=== PATIENT | male | born 1990 | race Caucasian/White ===

== ENCOUNTER 2024-03-25 21:52 | Emergency (ER) | payer OTHER, SELFPAY ==
[2024-03-25 21:54] VITALS: BP 129/92
[2024-03-25] MEDS: ADACEL 0.5 ML IM (22:59)
--- NOTE | 2024-03-25 23:02 | ED.GENMED ---
History of Present Illness
General
Chief Complaint: Skin Surface Trauma
Source: patient and spouse
Exam Limitations: none
Time Seen by Provider: 03/25/24 22:08
Nursing documentation reviewed up to this point in time: agreed with
Travel History
Have you had any contact with someone who has COVID-19?: No
Do you have any symptoms of coronavirus? Fever > 100 degrees, chills, cough, shortness of breath, sore throat, loss of taste or smell, muscle aches, or headache?: No
History of Present Illness
History of Present Illness:
34-year-old male without significant past medical history presenting to the emergency department today with concerns of a laceration and skin avulsion to the left ring finger that occurred on a bread knife prior to arrival. Denies additional
numbness weakness or additional concerns.
Review of Systems
Review of Systems
Allergies reviewed?: Yes
All Other Systems: ROS reviewed and negative except as documented in HPI and ROS
Phy Exam
Physical Exam
Physical Exam:
GENERAL: Alert , in no apparent distress
EYE: pupils equal and reactive
NECK: Supple, no significant adenopathy.
ENT: o/p clr, mmm.
CARDIAC: Regular rate and rhythm .
LUNGS: Clear breath sounds bilaterally, no acute respiratory distress, no wheezes/rales/rhonchi
ABDOMEN: Soft, without focal tenderness, no r/g, no cvat
NEUROLOGICAL: Alert and oriented, no focal neuro deficits
SKIN: Skin avulsion to the left ring finger on the ulnar aspect the very distal finger on the lateral aspect roughly 1 cm in total length and diameter. Deep to subcutaneous tissue. No foreign body seen. Only very small amount of the flap was
still connected and nonviable warm and dry, skin intact.
MUSCULOSKELETAL: No edema, well perfused.
PSYCH: Normal and appropriate interaction.
Course
Orders/Labs/Results
Orders:
Orders
03/25/24 22:56
Tetanus/Diphth/Acelpertussis [Adacel] 0.5 ml IM .ONCE ONE
Vital Signs
Initial and Last Documented VS:
Initial Vital Signs
Temp Pulse Resp BP Pulse Ox
98.4 F 76 18 129/92 99
03/25/24 21:54 03/25/24 21:54 03/25/24 21:54 03/25/24 21:54 03/25/24 21:54
Last Documented Vital Signs
Temp Pulse Resp BP Pulse Ox
98.4 F 76 18 129/92 99
03/25/24 21:54 03/25/24 21:54 03/25/24 21:54 03/25/24 21:54 03/25/24 21:54
Procedures
Laceration Closure
Left Lateral Distal Ulnar Fourth Finger:
Status of Wound: clean
Size of Wound in cm: 1.5
Description of Wound Edges: flap-poorly vascularized
Preparation: cleaned with saline
Anesthesia: Marcaine and [facility]
Revision/Debridement: minor revision, debrided and irrigate-direct pressure
Wound exploration: explored to base- no FB and no tendon involvement
Type of Closure: Dermabond-skin glue
MDM/Problems Addressed
MDM/Problems Addressed:
34-year-old male presenting to the emergency department with concerns of a skin flap injury from a bread knife prior to arrival. Flap is nonviable and removed tourniquet was placed and Dermabond placed to control bleeding but otherwise wound will
need to heal from secondary intention. Patient has his hands were very dirty due to opening a pool just prior. Considering this was started on antibiotics also given updated tetanus shot otherwise stable for outpatient management return
precautions given.
*Critical Care Note
Total Time (30-74mins, 75-104mins- exclusive of procedures): Not Applicable
ED Attending Note
-
Portions of this chart may have been created with voice recognition software.� Occasional wrong word or��sound alike� substitutions may have occurred due to the inherent limitations of voice recognition software.
Discharge Plan
Departure
Patient Disposition: Home (Routine Discharge)
Date of Disposition: 03/25/24
Time of Disposition: 23:05
Patient with high blood pressure during this ER visit?: No
Condition: Good
Covid-19: Not Applicable
Discharge Problem:
Avulsion of skin of finger
Instructions: Laceration Repair With Glue (DC)
Prescriptions:
New
cephalexin 500 mg capsule
500 mg PO TID 3 Days Qty: 9 0RF
Referrals:
Bakari Scott CRNP [Family Provider] -
Activity Restrictions/Additional Instructions:
You came to the emergency department today with concerns of a skin avulsion. The skin flap was nonviable and will need to heal from secondary intention. Dermabond was placed to control bleeding. Please keep the area clean covered and allow time
for this to heal. Return to the emergency department for any worsening, new or concerning symptoms. In the meantime please take Keflex 3 times daily for the next 3 days to reduce risk of infection.
Interventions
Interventions:
*Risk Screen - Suicide Last Done: 03/25/24 21:54
*General Assessment Last Done: 03/25/24 21:54
*Neglect/Abuse Screening Last Done: 03/25/24 21:54
Discharge Date and Time
Print Language: MARSHALLESE
[2024-03-25] MEDS: KEFLEX 500 MG PO (23:10)
== END 2024-03-25 23:15 | disposition home or self-care (01) ==
LOC: EMR 21:52
PROVIDERS: EMERGENCY PHYSICIAN Student in an Organized Health Care Education/Training Program; FAMILY PHYSICIAN Nurse Practitioner Family
DX: S61.215A Laceration without foreign body of left ring finger without damage to nail, initial encounter (principal); W26.0XXA Contact with knife, initial encounter; Z23 Encounter for immunization
CPT/HCPCS: 99282; 12001; 90471; 90715